=== PATIENT | male | born 1950 | race Caucasian/White ===

== ENCOUNTER → 2018-02-22 | Outpatient (CLI) | payer MEDICARE, BC ==
[~2018-02-22] MED LIST: AZITHROMYCIN500 MG PO; LISINOPRIL-HCT1 EAC3 PO; PRAVACHOL10 MG PO; ZESTRIL20 MG PO
== END | disposition home or self-care (01) ==
LOC: CDC 10:28
DX: Z01.810 Encounter for preprocedural cardiovascular examination (principal); L60.0 Ingrowing nail; M79.645 Pain in left finger(s); R94.31 Abnormal electrocardiogram [ECG] [EKG]
CPT/HCPCS: 93000